=== PATIENT | female | born 2000 | race Two or more races ===

== ENCOUNTER 2018-03-25 22:09 | Observation (INO) | payer OTHER ==
[2018-03-25] MEDS: IV NORMAL SALINE 1000ML BAG 1,000 ML IV (22:50)
[2018-03-25 22:55] LABS: ADD MAN DIFF? NO
[2018-03-25 23:01] LABS: BASO # 0.1 x10^3/uL (0.0-0.2); BASO % 1 % (0-3); EOS # 0.1 x10^3/uL (0.0-0.7); EOS % 1 % (0-3); HEMATOCRIT 36.2 % (36.0-47.0); HEMOGLOBIN 12.4 g/dL (12.0-15.5); LYMPH % 21 % (24-48); MEAN CORPUSCULAR HEMOGLOBIN 31 pg (25-35); MEAN CORPUSCULAR HGB CONC 34 g/dL (31-37); MEAN CORPUSCULAR VOLUME 89 fL (79-100); MONO # 0.5 x10^3/uL (0.0-1.1); MONO % 6 % (0-9); NEUT # 6.9 x10^3uL (1.8-7.7); NEUT % 72 % (31-73); PLATELET COUNT 284 x10^3/uL (140-400); RED BLOOD COUNT 4.07 x10^6/uL (3.50-5.40); RED CELL DISTRIBUTION WIDTH 13.4 % (11.5-14.5); WHITE BLOOD COUNT 9.5 x10^3/uL (4.0-11.0)
[2018-03-25 23:05] LABS: ANION GAP 12 (6-14); BLOOD UREA NITROGEN 8 mg/dL (7-20); BUN/CREATININE RATIO 16 (6-20); CALCIUM 8.3 mg/dL (8.5-10.1); CARBON DIOXIDE 23 mmol/L (21-32); CHLORIDE 101 mmol/L (98-107); CREATININE 0.5 mg/dL (0.6-1.0); GFR 158.9; GLUCOSE 108 mg/dL (70-99); POTASSIUM 3.4 mmol/L (3.5-5.1); SODIUM 136 mmol/L (136-145)
[2018-03-25] MEDS: ACETAMINOPHEN 500 MG TABLET PO (23:07)
[2018-03-25 23:12] LABS: ALBUMIN 2.8 g/dL (3.4-5.0); ALBUMIN/GLOBULIN RATIO 0.7 (1.0-1.7); ALK PHOS 78 U/L (46-116); ALT (SGPT) 15 U/L (14-59); AST (SGOT) 13 U/L (15-37); TOTAL BILIRUBIN 0.1 mg/dL (0.2-1.0); TOTAL PROTEIN 6.9 g/dL (6.4-8.2)
[2018-03-25 23:58] LABS: BILIRUBIN,URINE NEGATIVE (NEG); CLARITY,URINE CLOUDY; COLOR,URINE YELLOW; GLUCOSE,URINE NEGATIVE (NEG); NITRITE,URINE NEGATIVE (NEG); PH,URINE 7.5; PROTEIN,URINE 30 mg/dL (NEG-TRACE)
[2018-03-26 00:04] LABS: AMORPHOUS SEDIMENT,UR PRESENT /HPF; BACTERIA,URINE FEW /HPF (0-FEW); RBC,URINE TNTC /HPF (0-2); SQUAMOUS EPITHELIAL CELL,UR OCC /LPF
[2018-03-26] MEDS: hydrOXYzine PAMOATE 25 MG CAPSULE PO (01:11)
[2018-03-26] MEDS: IV NORMAL SALINE 1000ML BAG 1,000 ML IV ×3 (01:31→21:57)
[2018-03-26] MEDS: ACETAMINOPHEN 325 MG TABLET. PO (08:57)
[2018-03-26] MEDS ORDERED: KETOROLAC 30 MG/ML INJ. IV (10:45)
[2018-03-28 15:23] LABS: CHLAMYDIA PROBE Negative (Negative); GC PROBE Negative (Negative)
== END 2018-03-27 14:00 | disposition home or self-care (01) ==
LOC: 3 NORTH 03-26 00:48 → ER 22:09
DX: O26.892 Other specified pregnancy related conditions, second trimester (principal); R10.30 Lower abdominal pain, unspecified; Z3A.18 18 weeks gestation of pregnancy
CPT/HCPCS: 36415; 76805; 76816; 80053; 81001; 85025; 86900; 86901; 87086; 87491; 87591; 96360; 96361; 99285-25; G0378; G0379; J7030; Q0111; Q0177

== ENCOUNTER 2019-03-15 16:11 | Emergency (ER) | payer OTHER ==
[~2019-03-15] VITALS: Ht 157.5 cm; Wt 45.4 kg
[2019-03-15 16:42] LABS: BILIRUBIN,URINE NEGATIVE (NEG); CLARITY,URINE CLEAR; COLOR,URINE YELLOW; NITRITE,URINE NEGATIVE (NEG); PH,URINE 6.5; PROTEIN,URINE NEGATIVE (NEG-TRACE); UROBILINOGEN,URINE 0.2 mg/dL (0.2 mg/dL)
[2019-03-15 16:50] LABS: RBC,URINE 0 /HPF (0-2)
[2019-03-15 16:51] LABS: BACTERIA,URINE 0 /HPF (0-FEW); SQUAMOUS EPITHELIAL CELL,UR MANY /LPF; TRICHOMONAS,URINE PRESENT
[2019-03-15 17:10] VITALS: BP 174/71
[2019-03-15] MEDS ORDERED: AZITHROMYCIN 250 MG TABLET. PO ONE (17:45)
[2019-03-15] MEDS ORDERED: cefTRIAXone IM 250 MG VIAL IM ONE (17:45)
[2019-03-15] MEDS ORDERED: METR500T PO (17:46)
--- NOTE | 2019-03-15 17:46 | PHYS DOC ---
Past Medical History Past Medical History: Depression Past Surgical History: No Surgical History Alcohol Use: None Drug Use: None Adult General Chief Complaint Chief Complaint: ABDOMINAL PAIN HPI HPI Patient is a 18 year old female presents for urinary frequency and vaginal discharge x1 month. She denies pelvic or abdominal pain. Had vaginal 6 months ago, not Review of Systems Review of Systems Constitutional: Denies fever or chills [] Eyes: Denies change in visual acuity, redness, or eye pain [] HENT: Denies nasal congestion or sore throat [] Respiratory: Denies cough or shortness of breath [] Cardiovascular: No additional information not addressed in HPI [] GI: Denies abdominal pain, nausea, vomiting, bloody stools or diarrhea [] : Denies dysuria or hematuria [] Musculoskeletal: Denies back pain or joint pain [] Integument: Denies rash or skin lesions [] Neurologic: Denies headache, focal weakness or sensory changes [] Endocrine: Denies polyuria or polydipsia [] All other systems were reviewed and found to be within normal limits, except as documented in this note. Allergies Allergies Allergies Coded Allergies Type Severity Reaction Last Updated Verified No Known Drug Allergies 09/14/13 No Physical Exam Physical Exam Constitutional: Well developed, well nourished, no acute distress, non-toxic appearance. [] Neck: Normal range of motion, no tenderness, supple, no stridor. [] Cardiovascular:Heart rate regular rhythm, no murmur [] Lungs & Thorax: Bilateral breath sounds clear to auscultation [] Abdomen: Bowel sounds normal, soft, no tenderness, no masses, no pulsatile masses. [] Skin: Warm, dry, no erythema, no rash. [] : deferred, pt self swabbed, no pelvic pain Neurologic: Alert and oriented X 3, normal motor function, normal sensory function, no focal deficits noted. [] Psychologic: Affect normal, judgement normal, mood normal. [] Current Patient Data Vital Signs Vital Signs Date Time Temp Pulse Resp B/P (MAP) Pulse Ox O2 Delivery O2 Flow Rate FiO2 03/15/19 17:10 98.4 71 14 174/71 (105) 98 Room Air 98.4 Lab Values Laboratory Tests Test 03/15/19 16:20 03/15/19 16:24 Urine Collection Type Unknown Urine Color Yellow Urine Clarity Clear Urine pH 6.5 Urine Specific [place] 1.020 Urine Protein Negative mg/dL (NEG-TRACE) Urine Glucose (UA) Negative mg/dL (NEG) Urine Ketones (Stick) Negative mg/dL (NEG) Urine Blood Negative (NEG) Urine Nitrite Negative (NEG) Urine Bilirubin Negative (NEG) Urine Urobilinogen Dipstick 0.2 mg/dL (0.2 mg/dL) Urine Leukocyte Esterase Moderate (NEG) Urine RBC 0 /HPF (0-2) Urine WBC 5-10 /HPF (0-4) Urine Squamous Epithelial Cells Many /LPF Urine Bacteria 0 /HPF (0-FEW) Urine Trichomonas Present POC Urine HCG, Qualitative Hcg negative (Negative) EKG EKG [] Radiology/Procedures Radiology/Procedures [] Course & Med Decision Making Course & Med Decision Making Pertinent Labs and Imaging studies reviewed. (See chart for details) [pt has +trich in UA, she would like to be treated for GC/Chlamydia, understands results not available for 2-3 days. She is given Rocephin and Azithro in ED, Rx for flagyl, 7 days abstinence and get partners treated] Dragon Disclaimer Dragon Disclaimer This electronic medical record was generated, in whole or in part, using a voice recognition dictation system. Departure Departure Impression: Primary Impression: Trichomonal vaginitis Disposition: 01 HOME, SELF-CARE Condition: STABLE Referrals: NO PCP (PCP) Patient Instructions: Trichomoniasis Scripts Metronidazole (FLAGYL) 500 Mg Tablet 1 TAB PO BID, #14 TAB Prov: FIDELINA HAILE APRN 03/15/19 FIDELINA HAILE APRN Mar 15, 2019 17:46
[2019-03-19 13:08] LABS: GC PROBE Negative (Negative)
== END 2019-03-15 18:18 | disposition home or self-care (01) ==
LOC: ER 16:11
DX: A59.01 Trichomonal vulvovaginitis (principal); R35.0 Frequency of micturition
CPT/HCPCS: 81001; 81025; 87086; 87491; 87591; 96372; 99284; J0696; Q0144

== ENCOUNTER 2019-09-03 17:08 | Emergency (ER) | payer OTHER ==
[~2019-09-03] VITALS: Ht 157.5 cm; Wt 44.5 kg
[~2019-09-03 17:08] MED LIST: METR500T PO; POLY10DR RIGHTEYE
[2019-09-03 17:10] VITALS: BP 93/50
[2019-09-03 17:40] LABS: BILIRUBIN,URINE NEGATIVE (NEG); CLARITY,URINE CLEAR; COLOR,URINE YELLOW; NITRITE,URINE NEGATIVE (NEG); PROTEIN,URINE NEGATIVE (NEG-TRACE)
[2019-09-03 17:50] LABS: BASO % 1 % (0-3); EOS # 0.1 x10^3/uL (0.0-0.7); EOS % 2 % (0-3); HEMATOCRIT 41.7 % (36.0-47.0); LYMPH # 2.2 x10^3/uL (1.0-4.8); LYMPH % 30 % (24-48); MEAN CORPUSCULAR HEMOGLOBIN 30 pg (25-35); MEAN CORPUSCULAR HGB CONC 34 g/dL (31-37); MEAN CORPUSCULAR VOLUME 90 fL (79-100); MONO # 0.4 x10^3/uL (0.0-1.1); MONO % 6 % (0-9); NEUT # 4.5 x10^3/uL (1.8-7.7); NEUT % 62 % (31-73); PLATELET COUNT 256 x10^3/uL (140-400); RED BLOOD COUNT 4.62 x10^6/uL (3.50-5.40); RED CELL DISTRIBUTION WIDTH 13.2 % (11.5-14.5); WHITE BLOOD COUNT 7.2 x10^3/uL (4.0-11.0)
--- NOTE | 2019-09-03 17:58 | PHYS DOC ---
Past Medical History Past Medical History: Depression (NAKITA DE LA TORRE APRN) Past Surgical History: No Surgical History (NAKITA DE LA TORRE APRN) Alcohol Use: None Drug Use: None (NAKITA DE LA TORRE APRN) Adult General Chief Complaint Chief Complaint: PAIN ON URINATION [facility] HPI Patient is a 19 year old female with history of ovarian cysts, depression, who presents to the ED today complaining of 6 out of 10 right pelvic pain intermittently for 1-1/2 months. Patient denies any exacerbating or relieving factors. She describes the pain as sharp. She is also reporting vaginal discharge as well as dysuria for the same amount of time. She states she's had an IUD for 1 year and she is having many issues with this IUD including vaginal discharge and frequent UTIs. Patient denies any concerns for STDs. (NAKITA DE LA TORRE APRN) Review of Systems Review of Systems Constitutional: Denies fever or chills [] Eyes: Denies change in visual acuity, redness, or eye pain [] HENT: Denies nasal congestion or sore throat [] Respiratory: Denies cough or shortness of breath [] Cardiovascular: No additional information not addressed in HPI [] GI: Reports right pelvic pain, vaginal discharge denies, nausea, vomiting, bloody stools or diarrhea [] : Reports dysuria, denies hematuria [] Musculoskeletal: Denies back pain or joint pain [] Integument: Denies rash or skin lesions [] Neurologic: Denies headache, focal weakness or sensory changes [] All other systems were reviewed and found to be within normal limits, except as documented in this note. (NAKITA DE LA TORRE APRN) Allergies Allergies Allergies Coded Allergies Type Severity Reaction Last Updated Verified No Known Drug Allergies 09/14/13 No (ELVIS CHAVEZ DO) Physical Exam Physical Exam Constitutional: Well developed, well nourished, no acute distress, non-toxic appearance. [] HENT: Normocephalic, atraumatic, bilateral external ears normal, oropharynx moist, no oral exudates, nose normal. [] Eyes: PERRLA, EOMI, conjunctiva normal, no discharge. [] Neck: Normal range of motion, no tenderness, supple, no stridor. [] Cardiovascular:Heart rate regular rhythm, no murmur [] Lungs & Thorax: Bilateral breath sounds clear to auscultation [] Abdomen: Bowel sounds normal, soft, negative psoas sign, negative obturator sign, no masses, no pulsatile masses. [] Pelvic exam External pelvic appears normal, cervix is visualized, IUD strings noted at the cervical OS. Trace amount of thick white discharge noted in the vaginal vault. No CMT, no adnexal tenderness. Skin: Warm, dry, no erythema, no rash. [] Back: No tenderness, no CVA tenderness. [] Extremities: No tenderness, no cyanosis, no clubbing, ROM intact, no edema. [] Neurologic: Alert and oriented X 3, normal motor function, normal sensory function, no focal deficits noted. [] Psychologic: Affect normal, judgement normal, mood normal. [] (NAKITA DE LA TORRE APRN) Current Patient Data Vital Signs Vital Signs Date Time Temp Pulse Resp B/P (MAP) Pulse Ox O2 Delivery O2 Flow Rate FiO2 09/03/19 17:10 97.9 75 16 93/50 (64) 99 Room Air 97.9 (CHAVEZ,ELVIS R DO) Lab Values Laboratory Tests Test 09/03/19 17:12 09/03/19 17:15 09/03/19 17:45 Urine Collection Type Unknown Urine Color Yellow Urine Clarity Clear Urine pH 7.0 Urine Specific [place] 1.025 Urine Protein Negative mg/dL (NEG-TRACE) Urine Glucose (UA) Negative mg/dL (NEG) Urine Ketones (Stick) Negative mg/dL (NEG) Urine Blood Negative (NEG) Urine Nitrite Negative (NEG) Urine Bilirubin Negative (NEG) Urine Urobilinogen Dipstick 1.0 mg/dL (0.2 mg/dL) Urine Leukocyte Esterase Negative (NEG) Urine RBC 0 /HPF (0-2) Urine WBC Rare /HPF (0-4) Urine Squamous Epithelial Cells Mod /LPF Urine Bacteria Mod /HPF (0-FEW) Urine Mucus Marked /LPF POC Urine HCG, Qualitative Hcg negative (Negative) White Blood Count 7.2 x10^3/uL (4.0-11.0) Red Blood Count 4.62 x10^6/uL (3.50-5.40) Hemoglobin 14.0 g/dL (12.0-15.5) Hematocrit 41.7 % (36.0-47.0) Mean Corpuscular Volume 90 fL (79-100) Mean Corpuscular Hemoglobin 30 pg (25-35) Mean Corpuscular Hemoglobin Concent 34 g/dL (31-37) Red Cell Distribution Width 13.2 % (11.5-14.5) Platelet Count 256 x10^3/uL (140-400) Neutrophils (%) (Auto) 62 % (31-73) Lymphocytes (%) (Auto) 30 % (24-48) Monocytes (%) (Auto) 6 % (0-9) Eosinophils (%) (Auto) 2 % (0-3) Basophils (%) (Auto) 1 % (0-3) Neutrophils # (Auto) 4.5 x10^3/uL (1.8-7.7) Lymphocytes # (Auto) 2.2 x10^3/uL (1.0-4.8) Monocytes # (Auto) 0.4 x10^3/uL (0.0-1.1) Eosinophils # (Auto) 0.1 x10^3/uL (0.0-0.7) Basophils # (Auto) 0.0 x10^3/uL (0.0-0.2) Sodium Level 141 mmol/L (136-145) Potassium Level 4.0 mmol/L (3.5-5.1) Chloride Level 103 mmol/L (98-107) Carbon Dioxide Level 28 mmol/L (21-32) Anion Gap 10 (6-14) Blood Urea Nitrogen 11 mg/dL (7-20) Creatinine 0.6 mg/dL (0.6-1.0) Estimated GFR (Cockcroft-Gault) 126.2 BUN/Creatinine Ratio 18 (6-20) Glucose Level 87 mg/dL (70-99) Calcium Level 9.3 mg/dL (8.5-10.1) Total Bilirubin 0.3 mg/dL (0.2-1.0) Aspartate Amino Transferase (AST) 10 U/L (15-37) L Alanine Aminotransferase (ALT) 13 U/L (14-59) L Alkaline Phosphatase 70 U/L (46-116) Total Protein 7.2 g/dL (6.4-8.2) Albumin 3.7 g/dL (3.4-5.0) Albumin/Globulin Ratio 1.1 (1.0-1.7) Laboratory Tests 09/03/19 17:45 Laboratory Tests 09/03/19 17:45 Microbiology 09/03/19 Wet Prep - Final, Complete (ELVIS CHAVEZ DO) EKG EKG [] (NAKITA DE LA TORRE APRN) Radiology/Procedures Radiology/Procedures []PROCEDURE: TRANSVAGINAL Pelvic ultrasound dated 09/03/2019. No comparison available. Clinical data indication: Pelvic pain. FINDINGS: Transvaginal pelvic ultrasound was performed. Uterus measures 9.1 x 5.3 x 4.3 cm. No focal uterine mass. Uterine contraceptive place appears adequately positioned. Right ovary measures 3.8 x 3.0 x 2.6 cm. Left ovary measures 3.3 x 2.2 x 1.7 cm. There is a 2.5 cm right ovarian cyst. No solid adnexal mass or free fluid. Normal color Doppler flow to both ovaries. IMPRESSION: 1. No acute sonographic abnormality. 2. Small right ovarian cyst. Electronically signed by: Elvis Chávez MD (09/03/2019 6:53 PM) [employer] DICTATED and SIGNED BY: ELVIS CHÁVEZ MD DATE: 09/03/191852 (NAKITA DE LA TORRE APRN) Course & Med Decision Making Course & Med Decision Making Pertinent Labs and Imaging studies reviewed. (See chart for details) This is a 19-year-old female patient presenting to the ED today with intermitt ent episodes of dysuria, pelvic pain specifically in the right side and vaginal discharge. Negative urine hCG, UA negative for infection, wet prep noted for BV and yeast infection. Pelvic ultrasound noted for small right ovarian cyst. CBC, CMP with no acute findings. Patient was d/c with fluconazole and flagyl. F/u with OB. (NAKITA DE LA TORRE APRN) Dragon Disclaimer Dragon Disclaimer This electronic medical record was generated, in whole or in part, using a voice recognition dictation system. (NAKITA DE LA TORRE APRN) Departure Departure Impression: Primary Impression: Bacterial vaginosis Additional Impressions: Ovarian cyst, right Vaginal yeast infection Disposition: 01 HOME, SELF-CARE Condition: STABLE Referrals: NO PCP (PCP) Follow-up with your own GENERAL TELLER in 1-2 weeks Patient Instructions: Bacterial Vaginosis, [id number], Vaginitis, Monilial Additional Instructions: You were evaluated in the emergency room and noted to have small right ovarian cyst, vaginal yeast infection and bacterial vaginosis. We'll put you on medi cations, take them as prescribed. Follow-up with your own GENERAL TELLER for the ovarian cyst and the rest of the symptoms in 1-2 weeks. You can take Tylenol/Motrin as needed for pain. Your prescriptions were sent to your pharmacy Scripts Metronidazole (FLAGYL) 500 Mg Tablet 1 TAB PO BID, #14 TAB Prov: NAKITA DE LA TORRE APRN 09/03/19 Fluconazole (FLUCONAZOLE) 150 Mg Tablet 150 MG PO DAILY, #2 TAB Take one tablet today and repeat in seven days Prov: NAKITA DE LA TORRE APRN 09/03/19 Attending Signature Attending Signature I have reviewed the [employer]'s note and plan of care. I was available for consultation as needed during the patient's visit in the emergency department. I agree with the clinical impression, plan, and disposition. (ELVIS CHAVEZ DO) Problem Qualifiers NAKITA DE LA TORRE APRN Sep 03, 2019 17:58 ELVIS CHAVEZ DO Sep 03, 2019 20:53
[2019-09-03 18:00] LABS: BACTERIA,URINE MOD /HPF (0-FEW); RBC,URINE 0 /HPF (0-2); SQUAMOUS EPITHELIAL CELL,UR MOD /LPF; WBC,URINE RARE /HPF (0-4)
[2019-09-03 18:07] LABS: CALCIUM 9.3 mg/dL (8.5-10.1); CREATININE 0.6 mg/dL (0.6-1.0); GFR 126.2
[2019-09-03 18:14] LABS: ALBUMIN 3.7 g/dL (3.4-5.0); ALBUMIN/GLOBULIN RATIO 1.1 (1.0-1.7); TOTAL BILIRUBIN 0.3 mg/dL (0.2-1.0); TOTAL PROTEIN 7.2 g/dL (6.4-8.2)
--- NOTE | 2019-09-03 18:56 | RAD ---
Pelvic ultrasound dated 09/03/2019. No comparison available. Clinical data indication: Pelvic pain. FINDINGS: Transvaginal pelvic ultrasound was performed. Uterus measures 9.1 x 5.3 x 4.3 cm. No focal uterine mass. Uterine contraceptive place appears adequately positioned. Right ovary measures 3.8 x 3.0 x 2.6 cm. Left ovary measures 3.3 x 2.2 x 1.7 cm. There is a 2.5 cm right ovarian cyst. No solid adnexal mass or free fluid. Normal color Doppler flow to both ovaries. IMPRESSION: 1. No acute sonographic abnormality. 2. Small right ovarian cyst. Electronically signed by: Elvis Chávez MD (09/03/2019 6:53 PM) [facility]
[2019-09-03] MEDS ORDERED: FLUC150T2 PO (19:10)
[2019-09-03] MEDS ORDERED: METR500T PO (19:10)
[2019-09-05 16:09] LABS: GC PROBE Negative (Negative)
== END 2019-09-03 19:12 | disposition home or self-care (01) ==
LOC: ER 17:08
DX: N83.201 Unspecified ovarian cyst, right side (principal); B37.3 Candidiasis of vulva and vagina; N76.0 Acute vaginitis; B96.89 Other specified bacterial agents as the cause of diseases classified elsewhere
CPT/HCPCS: 36415; 76830; 80053; 81001; 81025; 85025; 87491; 87591; 99285; Q0111